=== PATIENT | male | born 1995 | race Caucasian/White ===

== ENCOUNTER 2017-11-14 18:43 | Emergency (ER) | payer SELFPAY ==
[~2017-11-14] VITALS: Ht 177.8 cm; Wt 86.4 kg
[2017-11-14 20:08] LABS: EOS # 0.1 (0.04-0.40); EOS % 0.9 % (0.0-4.0); HEMATOCRIT 45.5 % (42.0-52.0); LYMPH# 2.8 (1.50-4.00); MEAN CELL VOLUME 87 fl (78-100); MEAN CORPUSCULAR HEMOGLOBIN 29 pg (27-31); MEAN CORPUSCULAR HGB CONC 33 g/dL (33-37); MEAN PLATELET VOLUME 10.4 fl (7.4-10.4); MONO # 0.8 (0.20-0.80); NEU # 6.4 (1.40-6.50); PLATELET COUNT 319 K/mm3 (130-400); RED BLOOD COUNT 5.25 M/mm3 (4.20-5.60); RED CELL DISTRIBUTION WIDTH 13.3 % (11.5-14.5); WHITE BLOOD COUNT 10.1 K/mm3 (4.8-10.8)
[2017-11-14 20:14] LABS: ALBUMIN 4.8 g/dL (3.5-5.0); CALCIUM 9.4 mg/dL (8.4-10.2); POTASSIUM 3.7 mmol/L (3.6-5.0); TOTAL BILIRUBIN 0.9 mg/dL (0.2-1.3); TOTAL PROTEIN 7.9 g/dL (6.3-8.2)
[2017-11-14 20:18] LABS: URINE APPEARANCE CLEAR; URINE COLOR YELLOW
[2017-11-14 20:19] LABS: URINE BILIRUBIN NEGATIVE (NEGATIVE); URINE BLOOD NEGATIVE (NEGATIVE); URINE GLUCOSE NEGATIVE (NEGATIVE); URINE KETONE NEGATIVE (NEGATIVE); URINE LEUKOCYTE ESTERASE NEGATIVE (NEGATIVE); URINE MUCUS PRESENT (NOT PRESENT); URINE NITRATE NEGATIVE (NEGATIVE); URINE PROTEIN(semi-quant) NEGATIVE (NEGATIVE); URINE UROBILINOGEN NORMAL (NORMAL); URINE WBC 0-1 /hpf (0-3)
[2017-11-14 20:54] VITALS: BP 114/81
== END 2017-11-14 20:54 | disposition home or self-care (01) ==
LOC: ED 18:43
PROVIDERS: Family Medicine
DX: F41.9 Anxiety disorder, unspecified (principal); R53.81 Other malaise

== ENCOUNTER 2018-08-13 12:33 | Emergency (ER) | payer SELFPAY ==
[2018-08-13 13:26] LABS: EOS # 0.1 (0.04-0.40); EOS % 1.4 % (0.0-4.0); HEMATOCRIT 46.8 % (42.0-52.0); HEMOGLOBIN 15.1 g/dL (13.5-18.0); LYMPH# 2.1 (1.50-4.00); MEAN CELL VOLUME 86 fl (78-100); MEAN CORPUSCULAR HEMOGLOBIN 28 pg (27-31); MEAN CORPUSCULAR HGB CONC 32 g/dL (33-37); MEAN PLATELET VOLUME 10.5 fl (7.4-10.4); MONO # 0.5 (0.20-0.80); NEU # 5.6 (1.40-6.50); PLATELET COUNT 308 K/mm3 (130-400); RED BLOOD COUNT 5.43 M/mm3 (4.20-5.60); RED CELL DISTRIBUTION WIDTH 13.5 % (11.5-14.5); WHITE BLOOD COUNT 8.4 K/mm3 (4.8-10.8)
[2018-08-13 13:41] LABS: PH-URINE 7.5 (5.0 - 8.0); URINE APPEARANCE HAZY; URINE BILIRUBIN NEGATIVE (NEGATIVE); URINE BLOOD NEGATIVE (NEGATIVE); URINE COLOR YELLOW; URINE GLUCOSE NEGATIVE (NEGATIVE); URINE KETONE NEGATIVE (NEGATIVE); URINE LEUKOCYTE ESTERASE NEGATIVE (NEGATIVE); URINE NITRATE NEGATIVE (NEGATIVE); URINE PROTEIN(semi-quant) NEGATIVE (NEGATIVE); URINE UROBILINOGEN NORMAL (NORMAL); URINE WBC 0-1 /hpf (0-3)
[2018-08-13 13:42] LABS: URINE MUCUS PRESENT (NOT PRESENT)
[2018-08-13 13:44] LABS: CALCIUM 10.1 mg/dL (8.3-10.5); CARBON DIOXIDE 26 mmol/L (22-29); GLUCOSE 100 mg/dL (75-110); SODIUM 141 mmol/L (136-145)
[2018-08-13 13:46] LABS: ACETAMINOPHEN < 1 ug/mL; ALCOHOL IN-HOUSE < 10 mg/dL (<10)
[2018-08-13 15:36] VITALS: BP 135/73
== END 2018-08-13 15:35 | disposition home or self-care (01) ==
LOC: ED 12:33
PROVIDERS: Physician Assistant
DX: R45.851 Suicidal ideations (principal); F32.9 Major depressive disorder, single episode, unspecified; F17.210 Nicotine dependence, cigarettes, uncomplicated; F12.90 Cannabis use, unspecified, uncomplicated

== ENCOUNTER 2023-08-31 10:51 | Emergency (ER) | payer OTHER ==
[~2023-08-31] VITALS: Ht 177.8 cm; Wt 81.8 kg
[2023-08-31 11:19] LABS: BASO # 0.06 K/mm3 (0.02-0.10); EOS # 0.13 K/mm3 (0.04-0.40); EOS % 1.4 % (0.0-4.0); HEMATOCRIT 46.7 % (42.0-52.0); HEMOGLOBIN 14.7 g/dL (13.5-18.0); LYMPH# 3.92 K/mm3 (1.50-4.00); MEAN CELL VOLUME 88 fl (78-100); MEAN CORPUSCULAR HEMOGLOBIN 28 pg (27-31); MEAN CORPUSCULAR HGB CONC 32 g/dL (33-37); MEAN PLATELET VOLUME 9.9 fl (7.4-10.4); MONO # 0.57 K/mm3 (0.20-0.80); PLATELET COUNT 358 K/mm3 (130-400); RED BLOOD COUNT 5.29 M/mm3 (4.20-5.60); RED CELL DISTRIBUTION WIDTH 12.8 % (11.5-14.5)
[2023-08-31 11:26] LABS: ALBUMIN 4.7 g/dL (3.5-5.0); SODIUM 142 mmol/L (136-145)
[2023-08-31 11:28] VITALS: BP 133/72
[2023-08-31 11:28] LABS: CALCIUM 9.6 mg/dL (8.3-10.5)
[2023-08-31 11:29] LABS: GLUCOSE 125 mg/dL (75-110); TOTAL PROTEIN 7.6 g/dL (6.4-8.3)
[2023-08-31 11:31] LABS: TOTAL BILIRUBIN 0.6 mg/dL (0.2-1.2)
[2023-08-31 11:34] LABS: AST-SGOT 25 U/L (5-34)
[2023-08-31] MEDS ORDERED: LITHIUM 30300 MG/CAP (11:34)
[2023-08-31 11:36] LABS: ALT/SGPT 22 U/L (0-55)
[2023-08-31 11:37] LABS: ACETAMINOPHEN < 1 ug/mL
[2023-08-31 11:39] LABS: ALCOHOL IN-HOUSE < 10 mg/dL (<10); CARBON DIOXIDE 12 mmol/L (22-29)
[2023-08-31 13:22] VITALS: BP 145/85
[2023-08-31 13:36] LABS: PH-URINE 5.5 (5.0 - 8.0); URINE APPEARANCE CLEAR (CLEAR); URINE BILIRUBIN NEGATIVE (NEGATIVE); URINE BLOOD NEGATIVE (NEGATIVE); URINE COLOR YELLOW (YELLOW); URINE GLUCOSE NEGATIVE (NEGATIVE); URINE KETONE NEGATIVE (NEGATIVE); URINE LEUKOCYTE ESTERASE NEGATIVE (NEGATIVE); URINE NITRATE NEGATIVE (NEGATIVE); URINE PROTEIN(semi-quant) NEGATIVE (NEGATIVE)
[2023-08-31 13:42] LABS: URINE WBC 0-1 /hpf (0-3)
[2023-08-31 13:45] LABS: URINE MUCUS PRESENT (NOT PRESENT)
[2023-08-31 15:04] VITALS: BP 133/76
== END 2023-08-31 15:05 ==
LOC: ED 10:51
PROVIDERS: Family Medicine
DX: R45.851 Suicidal ideations (principal); R45.850 Homicidal ideations

== ENCOUNTER 2023-08-31 16:12 | Emergency (ER) | payer OTHER ==
[~2023-08-31] VITALS: Ht 177.8 cm; Wt 81.8 kg
[~2023-08-31 16:12] MED LIST: LITHIUM 30300 MG/CAP
[2023-08-31 16:25] VITALS: BP 140/86
== END 2023-08-31 19:26 ==
LOC: ED 16:12
DX: S00.83XA Contusion of other part of head, initial encounter (principal); R45.851 Suicidal ideations; W22.01XA Walked into wall, initial encounter

== ENCOUNTER 2023-09-02 12:44 | Emergency (ER) | payer OTHER ==
[~2023-09-02] VITALS: Ht 177.8 cm; Wt 81.8 kg
[2023-09-02 15:00] VITALS: BP 117/68
== END 2023-09-02 15:30 ==
LOC: ED 12:44
DX: F99 Mental disorder, not otherwise specified (principal)